=== PATIENT | female | born 1950 ===

== ENCOUNTER 2021-04-08 12:10 | Outpatient (CLI) | payer OTHER | END 2021-04-08 15:39 | disposition home or self-care (01) | LOC: SONOGRAMA 12:10 | PROVIDERS: ATTEND Surgery | DX: D24.1 Benign neoplasm of right breast (principal); N60.11 Diffuse cystic mastopathy of right breast; N60.12 Diffuse cystic mastopathy of left breast; R92.0 Mammographic microcalcification found on diagnostic imaging of breast ==